=== PATIENT | female | born 1965 | race Caucasian/White ===

== ENCOUNTER 2021-11-03 12:33 | Outpatient (CLI) | payer MEDICAID ==
--- NOTE | 2021-11-03 14:38 | Ultrasound Report ---
PROCEDURE: Pelvic w/Transvaginal INDICATIONS: ABN UTERINE BLEEDING TECHNIQUE: Real-time scanning was performed of the pelvic organs, with image documentation. Additional endovagi nal scanning was necessary due to incomplete visualization of the adnexal and endometrial structures by transabdominal scanning. COMPARISON: None. FINDINGS: Limited scanning through the kidneys shows no hydronephrosis. No pathologic free abdominal or pelvic fluid. Uterus: Uterus is increased in size at 17.6 x 10.5 x 11.9 cm. The endometrium measures 35 mm in com bined thickness. Some 0.2 x 6.9 x 9.5 cm mid fundal intramural uterine fibroid noted. 3.3 x 2.0 x 4.1 cm submucosal uterine fibroid noted. Ovaries: Right ovary measures 2.3 x 1.2 x 1.9 cm with total volume of 2.8 cc. Left ovary measures 2. 7 x 1.6 x 1.8 cm total volume of 4.1 cc. Ovaries are sonographically normal. Cervix: Cervix and vagina are within normal limits. Other: No free pelvic fluid. IMPRESSION: 1. Abnormal endometrial thickening. Endometrial carcinoma is not excluded. Recommend gynecologic cons ultation for D&C evaluation. 2. Multiple uterine fibroids. 3. Ovaries sonographically normal. Reviewed by: Lorenza Thapa MD, PhD on 11/03/2021 2:37 PM PDT Approved by: Lorenza Thapa MD, PhD on 11/03/2021 2:37 PM PDT Station ID: [id number]
== END 2021-11-03 12:34 | disposition home or self-care (01) ==
LOC: DI 12:33
PROVIDERS: ATTEND Nurse Practitioner
DX: R93.89 Abnormal findings on diagnostic imaging of other specified body structures (principal); D25.1 Intramural leiomyoma of uterus; D25.0 Submucous leiomyoma of uterus

== ENCOUNTER 2021-12-04 10:49 | Outpatient (CLI) | payer MEDICAID ==
--- NOTE | 2021-12-08 16:19 | Mammography Report ---
BILATERAL DIGITAL SCREENING MAMMOGRAM 3D/2D: 12/04/2021 CLINICAL: Baseline exam Routine screening. No prior exams were available for comparison. There are scattered fibroglandular elements in both br easts. No significant masses, calcifications, or other findings are seen in either breast. IMPRESSION: NEGATIVE There is no mammographic evidence of malignancy. A 1 year screening mammogram is recommended. This exam was interpreted at Station ID: [id number]. NOTE: For mammograms, a report in lay terms will be sent to the patient. Approximately 15% of breast malignancies will not be visualized mammographically. In the management of a palpable breast mass, a negative mammogram must not discourage biopsy of a clinically suspicious lesion. Electronically Signed By: Roque Saba M.D. slc/penrad:12/06/2021 16:14:18 ACR BI-RADS Category 1: Negative 3341F PARENCHYMAL PATTERN: (A) - The breast(s) demonstrate(s) scattered fibroglandular densities. BI-RADS CATEGORY: (1) - 1 RECOMMENDATION: (ANNUAL) - Recommend routine annual screening mammography. [id number] 1 year screening LATERALITY: (B)
== END 2021-12-04 10:50 | disposition home or self-care (01) ==
LOC: DI.N 10:49
PROVIDERS: ATTEND Nurse Practitioner
DX: Z12.31 Encounter for screening mammogram for malignant neoplasm of breast (principal)

== ENCOUNTER 2021-12-04 11:44 | Outpatient (CLI) | payer MEDICAID ==
[2021-12-04 17:54] LABS: BASOPHILS # (AUTO) 0.1 10^3/uL (0.0-0.1); BASOPHILS % (AUTO) 1.2 %; EOSINOPHILS # (AUTO) 0.1 10^3/uL (0.0-0.7); EOSINOPHILS % (AUTO) 2.3 %; HCT - HEMATOCRIT 43.8 % (37.0-47.0); LYMPHOCYTES # (AUTO) 1.3 10^3/uL (1.5-3.5); LYMPHOCYTES % (AUTO) 25.9 %; MEAN CORPUSCULAR HEMOGLOBIN 27.2 pg (27.0-31.0); MEAN CORPUSCULAR VOLUME 85.2 fL (81.0-99.0); MEAN PLATELET VOLUME 11.3 fL (7.9-10.8); MONOCYTES # (AUTO) 0.3 10^3/uL (0.0-1.0); NEUTROPHILS # (AUTO) 3.1 10^3/uL (1.5-6.6); NEUTROPHILS % (AUTO) 63.2 %; PLT - PLATELET COUNT 306 10^3/uL (130-450); RED BLOOD COUNT 5.14 10^6/uL (4.20-5.40); RED CELL DISTRIBUTION WIDTH 15.9 % (12.0-15.0); WHITE BLOOD COUNT 4.8 x10^3/uL (4.8-10.8)
[2021-12-04 17:59] LABS: BILIRUBIN,URINE NEGATIVE (NEGATIVE); GLUCOSE, URINE (UA) NEGATIVE (NEGATIVE); KETONES,URINE (UA) NEGATIVE (NEGATIVE); LEUKOCYTE ESTERASE, URINE NEGATIVE (NEGATIVE); NITRITE,URINE NEGATIVE (NEGATIVE); OCCULT BLOOD,URINE NEGATIVE (NEGATIVE); PH,URINE 6.5 PH (5.0-7.5); PROTEIN,URINE NEGATIVE (NEGATIVE); UROBILINOGEN,URINE 0.2 (NORMAL) E.U./dL (NORMAL)
[2021-12-04 18:00] LABS: CLARITY,URINE CLEAR (CLEAR)
[2021-12-04 18:25] LABS: ALBUMIN 4.6 g/dL (3.2-5.5); ALBUMIN/GLOBULIN RATIO 1.4 (1.0-2.2); ALKALINE PHOSPHATASE 51 IU/L (42-121); ALT ALANINE AMINOTRANSFERASE 22 IU/L (10-60); AST ASPARTATE AMINOTRANSFERASE 21 IU/L (10-42); BILIRUBIN,TOTAL 0.5 mg/dL (0.2-1.0); BUN - BLOOD UREA NITROGEN 14 mg/dL (6-20); CALCIUM 9.9 mg/dL (8.5-10.3); CARBON DIOXIDE - CO2 28 mmol/L (21-32); CHLORIDE 104 mmol/L (101-111); CHOLESTEROL 278 mg/dL; CREATININE 0.7 mg/dL (0.4-1.0); GFR - MDRD 87 (>89); GLUCOSE 107 mg/dL (70-100); HDL CHOLESTEROL 56 mg/dL; LDL CHOLESTEROL,CALCULATED 190 mg/dL; LDL/HDL RATIO 3.4 (<4.4); POTASSIUM 4.3 mmol/L (3.5-5.0); SODIUM 140 mmol/L (135-145); TOTAL PROTEIN 7.8 g/dL (6.7-8.2); TRIGLYCERIDES 162 mg/dL; VLDL CHOLESTEROL 32 mg/dL
[2021-12-04 20:51] LABS: ESTIMATED AVERAGE GLUCOSE 105 mg/dL (70-100); HEMOGLOBIN A1c% 5.3 % (4.27-6.07)
== END 2021-12-04 11:45 | disposition home or self-care (01) ==
LOC: LAB.N 11:44
PROVIDERS: ATTEND Nurse Practitioner
DX: R53.83 Other fatigue (principal); Z13.220 Encounter for screening for lipoid disorders; E66.9 Obesity, unspecified
CPT/HCPCS: 36415; 80053; 80061; 81001; 81003; 83036; 83721; 84443; 85025; 87086

== ENCOUNTER 2022-04-25 11:47 | Outpatient (CLI) | payer MEDICAID ==
[2022-04-25 18:19] LABS: CHOL/HDL RATIO 5.4 (<4.4); CHOLESTEROL 275 mg/dL; HDL CHOLESTEROL 51 mg/dL; LDL CHOLESTEROL,CALCULATED 188 mg/dL; LDL/HDL RATIO 3.7 (<4.4); TRIGLYCERIDES 181 mg/dL; VLDL CHOLESTEROL 36 mg/dL
== END 2022-04-25 11:48 | disposition home or self-care (01) ==
LOC: LAB.N 11:47
PROVIDERS: ATTEND Nurse Practitioner
DX: E78.5 Hyperlipidemia, unspecified (principal)
CPT/HCPCS: 36415; 80061; 83721

== ENCOUNTER 2023-05-23 12:59 | Outpatient (CLI) | payer MEDICAID ==
--- NOTE | 2023-05-23 14:07 | Ultrasound Report ---
PROCEDURE: Duplex Ext Veins Right INDICATIONS: RIGHT LEG PAIN TECHNIQUE: Real-time imaging, as well as color and pulse Doppler interrogation, were performed of the lower extr emity deep veins from the inguinal ligament to the popliteal fossa. Attempted visualization of the ca lf veins was performed. COMPARISON: None. FINDINGS: Extensive intraluminal filling defect throughout right superficial femoral vein, popliteal vein extending to proximal portion of the posterior tibialis and peroneal veins. Poor contractility a nd respiratory variation is seen. IMPRESSION: Extensive occlusive venous thrombosis throughout visualized right lower extremity veins a s above. Reviewed by: Virgilio Connors MD on 05/23/2023 2:05 PM PDT Approved by: Virgilio Connors MD on 05/23/2023 2:05 PM PDT Station ID: [id number]
== END 2023-05-23 13:00 | disposition home or self-care (01) ==
LOC: DI 12:59
PROVIDERS: ATTEND Obstetrics & Gynecology
DX: I82.411 Acute embolism and thrombosis of right femoral vein (principal); I82.431 Acute embolism and thrombosis of right popliteal vein; I82.441 Acute embolism and thrombosis of right tibial vein; I82.451 Acute embolism and thrombosis of right peroneal vein

== ENCOUNTER 2023-05-23 13:52 | Emergency (ER) | payer MEDICAID ==
[2023-05-23 14:21] VITALS: BP 150/75; O2SAT 99
--- NOTE | 2023-05-23 14:35 | ED Physician Documentation ---
History of Present Illness - Stated complaint Stated Complaint: RT LEG DVT - Chief complaint Chief Complaint: Ext Problem - History obtained from History obtained from: Patient - History of Present Illness Timing: Today Pain level max: 0 Pain level now: 0 - Additonal information Additional information: Patient is a 57-year-old female who presents to the emergency department following an outpatient ultrasound for right lower extremity swelling which revealed a extensive right DVT. She is currently on tranexamic acid and medroxyprogesterone for dysfunctional uterine bleeding. Scheduled to have a hysterectomy on Saturday at [facility]. She is followed by Dr. Garcia, DRAFTING TEACHER at [facility]. Not currently having any vaginal bleeding. Review of Systems Constitutional: denies: Fever, Chills GI: denies: Nausea, Vomiting, Diarrhea Skin: denies: Rash Musculoskeletal: denies: Neck pain, Back pain Neurologic: denies: Headache PD PAST MEDICAL HISTORY - Past Medical History Past Medical History: Yes Other Past Medical History: dysfunctional uterine bleeding. - Present Medications Home Medications: Ambulatory Orders Medication Instructions Recorded Confirmed Apixaban [Eliquis] 5 mg PO BID #60 tablet 05/23/23 Apixaban [Eliquis] 10 mg PO BID #28 tablet 05/23/23 - Allergies Allergies/Adverse Reactions: Allergies Allergy/AdvReac Type Severity Reaction Status Date / Time No Known Drug Allergies Allergy Verified 05/23/23 14:15 - Living Situation Living Situation: reports: With family Living Arrangement: reports: At home - Social History Does the pt have substance abuse?: No - Family History Family history: reports: Non contributory PD ED PE NORMAL - Vitals Vital signs reviewed: Yes - General General: Alert and oriented X 3, No acute distress - HEENT HEENT: PERRL, Moist mucous membranes - Neck Neck: Supple, no meningeal sign - Cardiac Cardiac: RRR, Strong equal pulses - Respiratory Respiratory: No respiratory distress, Clear bilaterally - Abdomen Abdomen: Soft, Non tender, Non distended - Derm Derm: Warm and dry - Extremities Extremities: Other (RLE swelling, edema) - Neuro Neuro: Alert and oriented X 3 - Psych Psych: Normal mood, Normal affect Results - Vitals Vitals: Vital Signs - 24 hr 05/23/23 14:08 Temperature 37.1 C Heart Rate 87 Respiratory 17 Rate Blood Pressure 150/75 H O2 Saturation 99 Oxygen O2 Source Room air PD Medical Decision Making - ED course Complexity details: reviewed results, re-evaluated patient, considered differential, d/w patient, d/w family, d/w information technology consultant ED course: Patient with an extensive right lower extremity DVT on outpatient ultrasound. She is scheduled to have a hysterectomy on Saturday for dysfunctional uterine bleeding. I discussed the case with her auto air conditioning apprentice, Dr. Garcia. He recommends stopping the tranexamic acid and starting a DOAC. We did discuss possible admission, heparin drip and surgical intervention for hysterectomy, Dr. Garcia does not think this is necessary at this time. Patient was given strict return precautions for increasing bleeding, lightheadedness, dizziness or other new or worrisome symptoms. Patient is well-appearing, nontoxic. Does not have any active bleeding. No head injuries. Patient counseled regarding signs and symptoms for which I believe and urgent re-evaluation would be necessary. Patient with good understanding of and agreement to plan and is comfortable going home at this time This document was made in part using voice recognition software. While efforts are made to proofread this document, sound alike and grammatical errors may occur. Departure - Departure Disposition: Home, Self Care Clinical Impression: DVT (deep venous thrombosis) Qualifiers: DVT location: lower extremity Affected thrombotic vein of extremity: u nspecified vein of extremity Chronicity: acute Laterality: right Qualified Code(s): I82.401 - Acute embolism and thrombosis of unspecified deep veins of right lower extremity Condition: Good Instructions: ED DVT Follow-Up: Loida Car ARNP [Primary Care Provider] - Within 1 week WESLEY GARCIA MD [Physician No Access] - Within 1 week Prescriptions: Apixaban [Eliquis] 5 mg PO BID #60 tablet Apixaban [Eliquis] 10 mg PO BID #28 tablet Comments: We will start you on Eliquis, 10 mg by mouth twice a day x7 days then transition you to 5 mg twice a day. Please stop the tranexamic acid. I spoke with Dr. Garcia today, they will reevaluate your need for a hysterectomy after resolution of your blood clot. You need to monitor yourself closely for signs of increased bleeding, if your vaginal bleeding increases significantly, you should be reevaluated right away at the emergency department. Forms: PCP List Discharge Date/Time: 05/23/23 15:19
[2023-05-23] MEDS ORDERED: APIXABAN 5 MG TABLET PO STA (14:46)
== END 2023-05-23 15:19 | disposition home or self-care (01) ==
LOC: ED 13:52
DX: I82.401 Acute embolism and thrombosis of unspecified deep veins of right lower extremity (principal); I82.411 Acute embolism and thrombosis of right femoral vein; I82.431 Acute embolism and thrombosis of right popliteal vein; I82.441 Acute embolism and thrombosis of right tibial vein; I82.451 Acute embolism and thrombosis of right peroneal vein
CPT/HCPCS: 93971; 99282; 99284; A9270

== ENCOUNTER 2023-08-26 12:58 | Outpatient (CLI) | payer MEDICAID ==
--- NOTE | 2023-08-26 15:30 | Ultrasound Report ---
PROCEDURE: Duplex Ext Veins Right INDICATIONS: DVT TECHNIQUE: Real-time imaging, as well as color and pulse Doppler interrogation, were performed of the lower extr emity deep veins from the inguinal ligament to the popliteal fossa. Attempted visualization of the ca lf veins was performed. COMPARISON: 05/23/2023 FINDINGS: Positive study for DVT, extending from the right femoral vein to the calf veins, including posterior tibial and peroneal veins. More proximal veins appear patent. IMPRESSION: Positive study for DVT extending from the right femoral vein distally. Reviewed by: Kev Rowe MD on 08/26/2023 3:28 PM PST Approved by: Kev Rowe MD on 08/26/2023 3:28 PM PST Station ID: [id number]
== END 2023-08-26 12:59 | disposition home or self-care (01) ==
LOC: DI 12:58
PROVIDERS: ATTEND Family Medicine
DX: I82.411 Acute embolism and thrombosis of right femoral vein (principal)

== ENCOUNTER 2023-11-25 10:48 | Outpatient (CLI) | payer MEDICAID ==
--- NOTE | 2023-11-25 15:54 | Ultrasound Report ---
PROCEDURE: Duplex Ext Veins Right INDICATIONS: ACUTE DVT TECHNIQUE: Real-time imaging, as well as color and pulse Doppler interrogation, were performed of th e lower extremity deep veins from the inguinal ligament to the popliteal fossa. Attempted visualizati on of the calf veins was performed. COMPARISON: 08/26/2023 FINDINGS: Persistent internal echoes and incomplete compressibility involving the distal superficial femoral an d popliteal vein. Amount of clot burden has subjectively decreased however compared with the prior. T he remainder of vasculature in the right lower extremity is widely patent without internal echoes and normal compressibility. IMPRESSION: Persistent but improving nonocclusive deep venous thrombosis in the distal SFV and popliteal vein Reviewed by: Mic Harris MD on 11/25/2023 2:53 PM AKALIZE Approved by: Mic Harris MD on 11/25/2023 2:53 PM AKDT Station ID: [id number]
== END 2023-11-25 10:49 | disposition home or self-care (01) ==
LOC: DI 10:48
PROVIDERS: ATTEND Family Medicine
DX: I82.401 Acute embolism and thrombosis of unspecified deep veins of right lower extremity (principal)